=== PATIENT | male | born 1975 | race Caucasian/White ===

== ENCOUNTER 2017-03-18 22:46 | Observation (INO) | payer OTHER ==
[~2017-03-18] VITALS: Ht 185.4 cm; Wt 110.8 kg
[~2017-03-18 22:46] MED LIST: CIPRO500 MG PO; FLEXERIL10 MG PO; FLOMAX0.4 MG PO; HYDROCODON-ACE1 EAC7 PO; LISINOPRIL10 MG PO; MOTRIN600 MG PO; NAPROSYN500 MG PO; PERCOCET 5/31 TABLET PO; SERTRALINE HCL100 MG PO; ZOFRAN4 MG PO; ZOLOFT50 MG PO
[2017-03-18 23:22] LABS: BASOPHIL COUNT 0.1 K/uL (0-0.1); EOSINOPHIL COUNT 0.1 K/uL (0-0.3); HEMATOCRIT 45.2 % (38.0-50.0); IMMATURE GRANULOCYTE (%) 0.3 % (0.0-0.7); INSTRUMENT ABS NEUTROPHIL CT 5.8 K/uL; LYMPHOCYTE COUNT 1.9 K/uL (1.0-2.8); MCH 25.7 PG (29.0-34.0); MCHC 31.6 G/DL (30.0-36.0); MCV 81.1 FL (86-99); MEAN PLAT.VOLUME 12.5 uM^3 (9.0-12.4); MONOCYTE (%) 9.7 % (3-12); MONOCYTE COUNT 0.8 K/uL (0-0.8); NEUTROPHIL (%) 66.9 % (45-76); NEUTROPHIL COUNT 5.8 K/uL (1.8-6.4); PLATELET COUNT 181 K/uL (156-360); RBC DIS.WIDTH-CV 13.1 % (11.8-14.6); RBC DIS.WIDTH-SD 38.5 % (39-53); RED BLOOD COUNT 5.57 M/uL (4.00-5.50); WHITE BLOOD COUNT 8.7 K/uL (4.1-10.2)
[2017-03-18 23:33] LABS: CHLORIDE 109 mEq/L (99-109); POTASSIUM 3.9 mEq/L (3.7-5.4); SODIUM 141 mEq/L (136-147)
[2017-03-18 23:35] LABS: GLUCOSE 87 mg/dL (70-99)
[2017-03-18 23:36] LABS: ANION GAP 9 MEQ/L (2-14)
[2017-03-18 23:37] LABS: TOTAL BILIRUBIN 0.4 mg/dL (0.0-1.0)
[2017-03-18 23:39] LABS: ALKALINE PHOSPHATASE 54 IU/L (3-129); GFR ESTIMATE (CALCULATED) > 59 mL/min/
[2017-03-18 23:40] LABS: UREA NITROGEN (BUN) 18 mg/dL (9-23)
[2017-03-18 23:42] LABS: CREATINE KINASE 117 IU/L (1-294); TOTAL CK 117 IU/L (1-294)
[2017-03-18 23:45] LABS: PROTHROMBIN TIME 10.5 (9.2-11.2)
[2017-03-18 23:50] LABS: CK-MB 0.7 ng/mL (0.0-4.9)
[2017-03-19] MEDS ORDERED: HORNY GOAT WEED PO (01:14)
[2017-03-19] MEDS ORDERED: [UNRECOGNIZED DRUG - REMARK] PO (01:14)
[2017-03-19 03:11] VITALS: BP 150/88
[2017-03-19 08:20] VITALS: BP 140/89
[2017-03-19 08:52] VITALS: BP 140/82
[2017-03-19] MEDS ORDERED: PERCOCET 5/31 TABLET PO (09:24)
== END 2017-03-19 11:14 | disposition home or self-care (01) ==
LOC: EME 22:46 → EDOF 03-19 01:56 → 5WEST 03-19 03:03
PROVIDERS: Emergency Medicine
DX: T63.391A Toxic effect of venom of other spider, accidental (unintentional), initial encounter (principal); F31.9 Bipolar disorder, unspecified; I10 Essential (primary) hypertension; G43.909 Migraine, unspecified, not intractable, without status migrainosus; F43.9 Reaction to severe stress, unspecified
CPT/HCPCS: 80053; 82550; 82553; 83605; 85025; 85610; 85730; 87040; 99281; 99285; G0378; J1200; J1644; J2270; J2405; J7030

== ENCOUNTER 2017-08-03 23:26 | Inpatient (IN) | payer OTHER ==
[~2017-08-03] VITALS: Ht 185.4 cm; Wt 108.2 kg
[~2017-08-03 23:26] MED LIST changes: +HORNY GOAT WEED PO; +[UNRECOGNIZED DRUG - REMARK] PO
[2017-08-04 00:17] LABS: HEMATOCRIT 38.8 % (38.0-50.0); MCH 26.1 PG (29.0-34.0); MCHC 32.5 G/DL (30.0-36.0); MCV 80.5 FL (86-99); MEAN PLAT.VOLUME 12.2 uM^3 (9.0-12.4); PLATELET COUNT 134 K/uL (156-360); RBC DIS.WIDTH-CV 13.4 % (11.8-14.6); RBC DIS.WIDTH-SD 39.6 % (39-53); RED BLOOD COUNT 4.82 M/uL (4.00-5.50); WHITE BLOOD COUNT 7.7 K/uL (4.1-10.2)
[2017-08-04 00:27] LABS: CHLORIDE 105 mEq/L (99-109); POTASSIUM 3.3 mEq/L (3.7-5.4); SODIUM 140 mEq/L (136-147)
[2017-08-04 00:29] LABS: GLUCOSE 113 mg/dL (70-99)
[2017-08-04 00:31] LABS: ANION GAP 12 MEQ/L (2-14)
[2017-08-04 00:33] LABS: GFR ESTIMATE (CALCULATED) > 59 mL/min/
[2017-08-04 00:34] LABS: UREA NITROGEN (BUN) 11 mg/dL (9-23)
[2017-08-04 01:50] LABS: INFLUENZA A VIRAL ANTIGEN NEGATIVE; INFLUENZA B VIRAL ANTIGEN NEGATIVE
[2017-08-04] MEDS ORDERED: MUCINEX600 MG PO (02:00)
[2017-08-04] MEDS ORDERED: MOTRIN800 MG PO (02:01)
[2017-08-04 02:10] LABS: TOTAL BILIRUBIN 0.8 mg/dL (0.0-1.0)
[2017-08-04 02:11] LABS: ALKALINE PHOSPHATASE 61 IU/L (3-129)
[2017-08-04 02:13] LABS: DIRECT BILIRUBIN 0.4 mg/dL (0.0-0.3)
[2017-08-04 02:14] LABS: LIPASE 16 U/L (1.0-51.0)
[2017-08-04 03:25] VITALS: BP 145/79
[2017-08-04 06:40] VITALS: BP 131/79
[2017-08-04 15:13] VITALS: BP 139/82
[2017-08-05 00:25] VITALS: BP 155/88
[2017-08-05 08:51] VITALS: BP 131/78
[2017-08-05 15:17] VITALS: BP 129/72
[2017-08-05 23:29] VITALS: BP 132/71
[2017-08-06 07:34] VITALS: BP 123/72
[2017-08-06 16:17] VITALS: BP 128/79
[2017-08-07 00:15] VITALS: BP 133/75
[2017-08-07 06:25] LABS: ANION GAP 7 MEQ/L (2-14); CHLORIDE 104 MEQ/L (99-109); GFR ESTIMATE (CALCULATED) > 59 mL/min/; GLUCOSE 89 mg/dL (70-99); SAMPLE HEMOLYSIS CHECK 0; SAMPLE ICTERIC CHECK 0; SAMPLE LIPEMIA CHECK 0; SODIUM 141 MEQ/L (136-147); UREA NITROGEN (BUN) 16 mg/dL (9-23)
[2017-08-07 06:31] LABS: POTASSIUM 4.5 MEQ/L (3.7-5.4)
[2017-08-07 07:51] VITALS: BP 138/81
== END 2017-08-07 13:39 | disposition home or self-care (01) | DRG 195 ==
LOC: EME 23:26 → EDOF 08-04 02:11 → 5EAST 08-04 02:11 → ENRESERV 08-04 02:13 → 5EAST 08-04 02:49
PROVIDERS: Emergency Medicine; Internal Medicine
DX: J18.9 Pneumonia, unspecified organism (principal); R09.02 Hypoxemia; E87.6 Hypokalemia; I10 Essential (primary) hypertension; R73.03 Prediabetes; F31.9 Bipolar disorder, unspecified; G43.909 Migraine, unspecified, not intractable, without status migrainosus; Z77.22 Contact with and (suspected) exposure to environmental tobacco smoke (acute) (chronic)
CPT/HCPCS: 71020; 80048; 80076; 83605; 83690; 85027; 87040; 87502; 93005; 94640; 94640 76; 99202; 99281; 99285; J0696; J7030; J7040; J7050